=== PATIENT | female | born 1975 | race African-American/Black ===

== ENCOUNTER 2016-07-07 11:36 | Emergency (ER) | payer OTHER ==
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
[2016-07-07 12:56] LABS: URINE SOURCE CLEAN CATCH
[2016-07-07 12:59] LABS: URINE APPEARANCE CLEAR; URINE BILIRUBIN NEG (NEG); URINE BLOOD NEG (NEG); URINE COLOR YELLOW; URINE GLUCOSE NEG (NORM); URINE KETONE NEG (NEG); URINE LEUKOCYTE ESTERASE NEG (NEG); URINE NITRATE NEG (NEG); URINE PH 7.5 (5-8); URINE PROTEIN NEG (NEG); URINE UROBILINOGEN 0.2 MG/DL (NORM)
[2016-07-07 13:00] LABS: MICRO INDICATED? NO
== END 2016-07-07 14:59 | disposition home or self-care (01) ==
LOC: SED 11:36
PROVIDERS: Nurse Practitioner Family
DX: S09.90XA Unspecified injury of head, initial encounter (principal); S16.1XXA Strain of muscle, fascia and tendon at neck level, initial encounter; V43.52XA Car driver injured in collision with other type car in traffic accident, initial encounter; Y92.410 Unspecified street and highway as the place of occurrence of the external cause
CPT/HCPCS: 70450; 72040; 72100; 81003; 84703; 99284